=== PATIENT | female | born 1950 | race Caucasian/White ===

== ENCOUNTER 2017-07-29 11:34 | Emergency (ER) | payer OTHER, MEDICARE ==
[~2017-07-29] VITALS: Ht 154.9 cm; Wt 56.2 kg
--- NOTE | 2017-07-29 12:11 | ED UPPER/LOWER EXTREMITY COMPL ---
History of Present Illness General Chief Complaint: Fall Stated Complaint: FALL LFT ELBOW PAIN Source: patient Exam Limitations: no limitations Vital Signs & Intake/Output Vital Signs & Intake/Output Vital Signs Date Time Temp Pulse Resp B/P B/P Pulse O2 O2 Flow FiO2 Mean Ox Delivery Rate 07/29 1534 97.4 72 16 138/69 97 Room Air 07/29 1314 97.9 84 18 148/79 99 Room Air 07/29 1145 97.7 86 16 156/85 97 Room Air Allergies Coded Allergies: No Known Allergies (07/29/17) Reconcile Medications Aspirin (Aspirin*) 81 MG TAB.CHEW 1 TAB PO DAILY HEART HEALTH (Reported) Atorvastatin Calcium 20 MG TABLET 1 TAB PO DAILY CHOLESTEROL (Reported) Losartan Potassium (Cozaar) 50 MG TABLET 1 TAB PO DAILY HEART (Reported) Oxycodone HCl/Acetaminophen (Percocet 5-325 MG Tablet) 5 MG-325 MG TABLET 1-2 TAB PO BID PAIN Triage Note: PT TO ER C/C LEFT ELBOW PAIN WITH MOVEMENT S/P SLIP AND FALL ONTO LEFT ELBOW WHILE SHOVELING NOW. +[facility] Triage Nurses Notes Reviewed? yes Onset: Abrupt Duration: hour(s):, constant Timing: recent history Severity: moderate, severe Pain/Injury Location: Left: Elbow. Method of Injury: direct blow, fall HPI: 59-year-old female comes into the emergency room for further evaluation of left elbow pain. Patient reports that she was in the garage and she tripped and fell on her left elbow. She denies hitting her head. Denies any neck pain. Denies any shoulder pain. Denies any injury anywhere else on her body. Able to walk. She has swelling to her left elbow and comes in for further evaluation. (Cal Haque) Past History Travel History Traveled to [place] past 21 day No Medical History Any Pertinent Medical History? see below for history Cardiovascular: hypertension Cancer(s): lung cancer Surgical History Surgical History: non-contributory Psychosocial History What is your primary language Irish Tobacco Use: Quit >30 days ago Family History Hx Contributory? No (Cal Haque) Review of Systems Review of Systems Constitutional: Reports: no symptoms. EENTM: Reports: no symptoms. Respiratory: Reports: no symptoms. Cardiovascular: Reports: no symptoms. Gastrointestinal/Abdominal: Reports: no symptoms. Genitourinary: Reports: no symptoms. Musculoskeletal: Reports: no symptoms. Skin: Reports: no symptoms. Neurological/Psychological: Reports: no symptoms. Hematologic/Endocrine: Reports: no symptoms. Immunological: Reports: no symptoms. All Other Systems: Reviewed and Negative (Cal Haque) Physical Exam Physical Exam General Appearance: well developed/nourished, mild distress Head: atraumatic Eyes: Bilateral: normal appearance. Ears, Nose, Throat: normal ENT inspection, hearing grossly normal Neck: normal inspection Cardiovascular/Respiratory: no respiratory distress Back: normal inspection Shoulder Left: limited range of motion Elbow Left: swelling, deformity, limited range of motion, radial pulse 2+, model and dye person strength intact, sensation intact, Skin: intact, normal color, warm/dry (Cal Haque) Progress Differential Diagnosis: cellulitis, contusion, dislocation, DVT, fracture, gout Plan of Care: Orders Procedure Date/time Status Durable Medical Equipment 07/29 1510 Active Diagnostic Imaging: Viewed by Me: Radiology Read. Discussed w/RAD: Radiology Read. Radiology Impression: PATIENT: TRENTON LEVINE PRESENT AGE: 67 PATIENT ACCOUNT NO: [id number] : 49 LOCATION: [facility] ORDERING PHYSICIAN: Cal RAMÍREZ SERVICE DATE: 07/29/17 EXAM TYPE: RAD - XRY-ELBOW 3 OR MORE VIEWS, L; XRY-FOREARM, LEFT EXAMINATION: XR FOREARM AND ELBOW, LEFT CLINICAL INFORMATION: Pain after a fall. COMPARISON: None TECHNIQUE: AP and lateral views of the left forearm and 4 views of the left elbow were obtained. FINDINGS: There is a comminuted distracted intra-articular fracture of the proximal ulna, involving the coronoid process and olecranon. There is splaying of the fracture fragments by the impacted trochlea. There is no dislocation of the trochlea. There is a comminuted fracture of the radial head and neck with posterior dislocation of the major radial head fracture fragment and articular surface. There is a large joint effusion and extensive soft tissue swelling. The distal humerus appears grossly intact. The distal forearm appears grossly intact with no fracture or dislocation at the wrist. There are degenerative changes in the elbow and wrist joint. IMPRESSION: Comminuted distracted intra-articular fracture of the proximal ulna with impaction of the trochlea and displacement of the coronoid process and olecranon process. Comminuted fractures of the radial head and neck with posterior dislocation of the major radial head fracture fragment and articular surface. Distal humerus is grossly intact. Distal forearm is grossly intact DICTATED BY: Jessica Arroyo MD DATE/TIME DICTATED:07/29/171333 RETAIL LOAN OFFICER:ALICE DATE/ TIME TRANSCRIBED:07/29/171333 CONFIDENTIAL, DO NOT COPY WITHOUT APPROPRIATE AUTHORIZATION. <Electronically signed in Other Vendor System> SIGNED BY: Jessica Arroyo MD 07/29/17 [id number] (Cal Haque) Departure Departure Disposition: HOME OR SELF CARE Condition: Stable Clinical Impression Primary Impression: Left elbow fracture Referrals: Patient Has No Primary Care Dr (PCP/Family) Beatrice FARIAS,Andres Boyd Additional Instructions: Take Tylenol for pain. If Tylenol is not helping can take Aleve. Take Percocet as needed for breakthrough pain. Follow-up with orthopedic doctor provided tomorrow. Return immediately if any concerns worsening symptoms. Please go over all results of today's visit with your primary care doctor. Contact your primary care doctor to let them know you were here in the emergency room. There may be nonspecific findings which may not be related to your visit today here in the emergency room but may require further evaluation and chronic monitoring by your primary care doctor. If you had a laceration today the chance of foreign body always remains. You should follow-up with your primary care doctor for recheck in 3-5 days for a wound check. If you had an x-ray done there is a chance that a fracture could have been missed on initial read and you should follow-up with your primary care doctor for repeat x-rays if symptoms persist. If your blood pressure was elevated here in the emergency room please have rechecked by [facility] primary care doctor within the next 48. If you were prescribed a narcotic here in the emergency room or any type of controlled substances you're not allowed to drive while taking this medication or operate any type of heavy machinery. Narcotics can make you feel lightheaded dizziness nausea and can cause constipation. You may need to picker box operator a stool softener. Thank you for choosing [facility] emergency room. Please return to the emergency room immediately if you have any other concerns worsening of symptoms. Departure Forms: Customer Survey General Discharge Information Prescriptions: Current Visit Scripts Oxycodone HCl/Acetaminophen (Percocet 5-325 MG Tablet) 1-2 TAB PO BID #15 TAB Comments 07/29/2017 3:57:[address] Hoskins who is the on-call orthopedic doctor. They will follow-up the patient tomorrow in the office. She will likely need a referral to another specialist. Neurovascularly intact at this time. Pain under control. Patient understands plan. case discussed with dr zavala. (Cal Haque) PA/TRACER CLERK Co-Sign Statement Statement: ED Attending supervision documentation- x I saw and evaluated the patient. I have also reviewed all the pertinent lab results and diagnostic results. I agree with the findings and the plan of care as documented in the PA's/TRACER CLERK's documentation. [] I have reviewed the ED Record and agree with the PA's/TRACER CLERK's documentation. [] Additions or exceptions (if any) to the PAs/TRACER CLERK's note and plan are summarized below: [] (Maryjo FARIAS,Jose Daniel) Procedures Splinting Location: lEFT ELBOW Manual Alignment Performed: No Splint: POSTERIOR LONG ARM SPLINT Splint Applied By: splint applied by me Pre-Proc Neuro Vasc Exam: normal Post-Proc Neuro Vasc Exam: normal (Cal Haque)
[2017-07-29] MEDS ORDERED: ASPIRIN81 M4 PO (12:51)
[2017-07-29] MEDS ORDERED: ATORVASTATIN CA20 M1 PO (12:52)
[2017-07-29] MEDS ORDERED: COZAAR50 M1 PO (12:52)
--- NOTE | 2017-07-29 13:46 | RADIOLOGY REPORT ---
EXAMINATION: XR FOREARM AND ELBOW, LEFT CLINICAL INFORMATION: Pain after a fall. COMPARISON: None TECHNIQUE: AP and lateral views of the left forearm and 4 views of the left elbow were obtained. FINDINGS: There is a comminuted distracted intra-articular fracture of the proximal ulna, involving the coronoid process and olecranon. There is splaying of the fracture fragments by the impacted trochlea. There is no dislocation of the trochlea. There is a comminuted fracture of the radial head and neck with posterior dislocation of the major radial head fracture fragment and articular surface. There is a large joint effusion and extensive soft tissue swelling. The distal humerus appears grossly intact. The distal forearm appears grossly intact with no fracture or dislocation at the wrist. There are degenerative changes in the elbow and wrist joint. IMPRESSION: Comminuted distracted intra-articular fracture of the proximal ulna with impaction of the trochlea and displacement of the coronoid process and olecranon process. Comminuted fractures of the radial head and neck with posterior dislocation of the major radial head fracture fragment and articular surface. Distal humerus is grossly intact. Distal forearm is grossly intact
[2017-07-29] MEDS ORDERED: PERCOCET 5-3251 EACH PO (14:47)
[2017-07-29 15:34] VITALS: BP 138/69
== END 2017-07-29 15:35 ==
LOC: ERH 11:34
DX: S52.042A Displaced fracture of coronoid process of left ulna, initial encounter for closed fracture (principal); S52.032A Displaced fracture of olecranon process with intraarticular extension of left ulna, initial encounter for closed fracture; S52.122A Displaced fracture of head of left radius, initial encounter for closed fracture; S52.132A Displaced fracture of neck of left radius, initial encounter for closed fracture; W01.0XXA Fall on same level from slipping, tripping and stumbling without subsequent striking against object, initial encounter; Y93.9 Activity, unspecified; Y92.9 Unspecified place or not applicable
CPT/HCPCS: 73080-LT; 73090-LT

== ENCOUNTER 2017-07-31 16:02 | Emergency (ER) | payer OTHER, MEDICARE ==
[~2017-07-31] VITALS: Ht 154.9 cm; Wt 56.2 kg
[~2017-07-31 16:02] MED LIST: ASPIRIN81 M4 PO; ATORVASTATIN CA20 M1 PO; COZAAR50 M1 PO; PERCOCET 5-3251 EACH PO
--- NOTE | 2017-07-31 18:09 | ED UPPER/LOWER EXTREMITY COMPL ---
History of Present Illness General Chief Complaint: Upper Extremity Problem Stated Complaint: L ELBOW SWELLING POST STATUS FRACTURE SPLINT Source: patient, old records Exam Limitations: no limitations Vital Signs & Intake/Output Vital Signs & Intake/Output Vital Signs Date Time Temp Pulse Resp B/P B/P Pulse O2 O2 Flow FiO2 Mean Ox Delivery Rate 07/31 1813 97.8 89 16 135/78 98 Room Air 07/31 1757 98 Room Air 07/31 1614 97.9 101 18 149/83 96 Room Air Allergies Coded Allergies: No Known Allergies (07/29/17) Reconcile Medications Aspirin (Aspirin*) 81 MG TAB.CHEW 1 TAB PO DAILY HEART HEALTH (Reported) Atorvastatin Calcium 20 MG TABLET 1 TAB PO DAILY CHOLESTEROL (Reported) Losartan Potassium (Cozaar) 50 MG TABLET 1 TAB PO DAILY HEART (Reported) Oxycodone HCl/Acetaminophen (Percocet 5-325 MG Tablet) 5 MG-325 MG TABLET 1-2 TAB PO BID PAIN Triage Note: RECEIVED 67 YO FEMALE WAS HERE Saturday07/29/17 AND DX WITH LEFT ELBOW FX WITH [address] LARIOS YESTERDAY. PT PRESENTS TO THE ED WITH GROSS SWELLING TO LEFT HAND, STARTED TODAY WITH DISCOLORATION. FINGERS MOBILE Triage Nurses Notes Reviewed? yes Onset: Abrupt Duration: day(s): Timing: recent history Severity: moderate, severe Pain/Injury Location: Left: Elbow. No Modifying Factors: none HPI: 59-year-old female comes into the emergency room for further evaluation of increased swelling to her left hand. Patient was seen here 2 days ago. She has a elbow fracture in the left side. She needs to specialist tomorrow. She comes into the increased swelling and pain to her left hand. (Cal Haque) Past History Travel History Traveled to [place] past 21 day No Medical History Any Pertinent Medical History? see below for history Cardiovascular: hypertension Cancer(s): lung cancer Surgical History Surgical History: non-contributory Psychosocial History What is your primary language Ukrainian Tobacco Use: Never used Family History Hx Contributory? No (Cal Haque) Review of Systems Review of Systems Constitutional: Reports: no symptoms. EENTM: Reports: no symptoms. Respiratory: Reports: no symptoms. Cardiovascular: Reports: no symptoms. Gastrointestinal/Abdominal: Reports: no symptoms. Genitourinary: Reports: no symptoms. Musculoskeletal: Reports: see HPI. Skin: Reports: no symptoms. Neurological/Psychological: Reports: no symptoms. Hematologic/Endocrine: Reports: no symptoms. Immunological: Reports: no symptoms. All Other Systems: Reviewed and Negative (Cal Haque) Physical Exam Physical Exam General Appearance: well developed/nourished, mild distress Head: atraumatic Eyes: Bilateral: normal appearance. Ears, Nose, Throat: normal ENT inspection, hearing grossly normal Neck: normal inspection Cardiovascular/Respiratory: no respiratory distress Peripheral Pulses: 2+ radial (L) Back: normal inspection Elbow Left: [place] wrap removed, pulses intact, arm was elevated, webril was left in place, Neurologic/Tendon: normal sensation, normal motor functions, responds to pain, no evidence tendon injury, no pulse deficit Skin: intact, normal color, warm/dry (Cal Haque) Progress Differential Diagnosis: arterial insufficiency, compartment syndrome, contusion Plan of Care: 07/31/2017 6:17:24 PM Patient felt significantly better after the [place] wrap was loosened. Her arm was elevated. The swelling in her hand improved. She has good capillary refill. She has a strong radial pulse. Patient was seen by Dr. Clifford. She has appointment with orthopedic doctor tomorrow. she is ready for discharge. (Cal Haque) Departure Departure Disposition: HOME OR SELF CARE Condition: Stable Clinical Impression Primary Impression: Aftercare for cast or splint check or change Secondary Impressions: Elbow fracture, left Referrals: Patient Has No Primary Care Dr (PCP/Family) Additional Instructions: Follow-up with specialist tomorrow as already scheduled. Keep hand elevated as much as possible. Return if any concerns worsening symptoms. Please go over all results of today's visit with your primary care doctor. Contact your primary care doctor to let them know you were here in the emergency room. There may be nonspecific findings which may not be related to your visit today here in the emergency room but may require further evaluation and chronic monitoring by your primary care doctor. If you had a laceration today the chance of foreign body always remains. You should follow-up with your primary care doctor for recheck in 3-5 days for a wound check. If you had an x-ray done there is a chance that a fracture could have been missed on initial read and you should follow-up with your primary care doctor for repeat x-rays if symptoms persist. If your blood pressure was elevated here in the emergency room please have rechecked by [facility] primary care doctor within the next 48. If you were prescribed a narcotic here in the emergency room or any type of controlled substances you're not allowed to drive while taking this medication or operate any type of heavy machinery. Narcotics can make you feel lightheaded dizziness nausea and can cause constipation. You may need to brick picker a stool softener. Thank you for choosing [facility] emergency room. Please return to the emergency room immediately if you have any other concerns worsening of symptoms. Departure Forms: Customer Survey General Discharge Information (Cal Haque) PA/MONORAIL OPERATOR Co-Sign Statement Statement: ED Attending supervision documentation- [x] I saw and evaluated the patient. I have also reviewed all the pertinent lab results and diagnostic results. I agree with the findings and the plan of care as documented in the PA's/MONORAIL OPERATOR's documentation. [] I have reviewed the ED Record and agree with the PA's/MONORAIL OPERATOR's documentation. [] Additions or exceptions (if any) to the PAs/MONORAIL OPERATOR's note and plan are summarized below: [] (Sylvain Clifford DO
[2017-07-31 18:13] VITALS: BP 135/78
== END 2017-07-31 18:14 ==
LOC: ERH 16:02
DX: Z46.89 Encounter for fitting and adjustment of other specified devices (principal)